=== PATIENT | female | born 1985 | race Caucasian/White ===

== ENCOUNTER 2020-07-03 14:09 | Emergency (ER) | payer BC, OTHER ==
[~2020-07-03] VITALS: Ht 157.5 cm; Wt 72.6 kg
[2020-07-03 14:56] LABS: URINE BILIRUBIN NEGATIVE (Negative); URINE BLOOD NEGATIVE (Negative); URINE CLARITY CLEAR; URINE COLOR YELLOW; URINE GLUCOSE-RANDOM* NEGATIVE (Negative); URINE KETONES TRACE (Negative); URINE LEUKOCYTES-REFLEX TRACE (Negative); URINE NITRITE-REFLEX NEGATIVE (Negative); URINE PROTEIN (DIPSTICK) NEGATIVE (Negative); URINE SPECIFIC GRAVITY 1.015 (1.005-1.035); URINE UROBILINOGEN 0.2 E.U./dl (0.2-1.0)
--- NOTE | 2020-07-03 15:28 | EKG ---
[address] [address] [place] [place] [address] ELECTROCARDIOGRAM REPORT Name: NITHIN PADGETT Room #: REG [facility]#: [id number] Admission: 07/03/20 Attend Phys: Discharge: Date of : 87 Report #: [id number] [facility] ED Test Date: 2020-07-03 Test Time: 15:05:58 Pat Name: NITHIN PADGETT Department: Room: Gender: F Cloth Cutter: yovani : 1985 Requested By: Costa Angulo Order Number: [id number] MD: Terry Couch Measurements Intervals [place] Rate: 89 P: 77 OR: 171 QRS: 93 QRSD: 102 T: 56 QT: 367 QTc: 447 Interpretive Statements Sinus rhythm Borderline right axis deviation Borderline low voltage, extremity leads Baseline wander in lead(s) V1 No previous ECG available for comparison Electronically Signed On 07-03-2020 15:28:41 VIDEOTAPE RECORDING ENGINEER by Terry Couch [email or web address] <ELECTRONICALLY SIGNED> By: Terry Couch MD, [facility] 07/03/20 1528 1505 1505 Terry Couch MD, FACC /EPI
[2020-07-03 15:46] LABS: ABSOLUTE NEUTROPHILS 9.1 thou/uL (1.4-8.2); BASOPHILS 0.3 % (0.0-2.0); EOSINOPHILS 0.3 % (0.0-3.0); HEMATOCRIT 45.2 % (37.0-47.0); HEMOGLOBIN 14.9 gm/dL (12.0-15.0); LYMPHOCYTES 14.3 % (24.0-44.0); MCV 90.8 fL (80.0-100.0); MONOCYTES 4.7 % (1.0-8.0); PLATELET COUNT 213 thou/uL (150-400); POLYS 80.4 % (36.0-66.0); RBC 4.97 mil/uL (4.20-5.00); RDW 12.7 % (10.5-14.5); WBC 11.3 thou/uL (4.0-11.0)
[2020-07-03 15:54] LABS: CALCIUM 9.4 mg/dL (8.5-10.1); CREATININE 1.3 mg/dL (0.6-1.0); POTASSIUM 3.7 mmol/L (3.5-5.1)
[2020-07-03 16:00] LABS: ALBUMIN 4.2 g/dL (3.4-5.0); TOTAL BILIRUBIN 0.5 mg/dL (0.2-1.0); TOTAL PROTEIN 7.5 g/dL (6.4-8.2)
[2020-07-03 16:56] VITALS: BP 110/72
== END 2020-07-03 16:57 | disposition home or self-care (01) ==
LOC: ER 14:09
PROVIDERS: Emergency Medicine
DX: R55 Syncope and collapse (principal); R20.2 Paresthesia of skin; Z91.013 Allergy to seafood

== ENCOUNTER → 2020-08-06 | Outpatient (CLI) | payer BC, OTHER | LOC: SJCVCIMAG 08:57 | PROVIDERS: ATTEND Internal Medicine | DX: R00.2 Palpitations (principal) ==

== ENCOUNTER → 2020-09-13 | Outpatient (CLI) | payer BC, OTHER | LOC: SJCVCIMAG 08:26 | PROVIDERS: ATTEND Internal Medicine | DX: R00.2 Palpitations (principal) ==